=== PATIENT | male | born 1970 | race Caucasian/White ===

== ENCOUNTER 2024-12-17 15:54 | Outpatient (CLI) | payer BC, SELFPAY ==
--- NOTE | ~2024-12-17 | MR_ITS ---
MRI of the right knee Clinical history: Pain Technique: Coronal proton density and proton density-weighted images, sagittal proton-density and T2 fat-sat images, and axial proton-density fat-saturated images were acquired. Findings: Anterior and posterior cruciate ligaments are intact. Medial collateral ligament and the la teral collateral ligament complex are intact. Popliteus tendon is intact. No definite lateral meniscal tear seen. Suspected free edge fraying or subtle horizontal tear of the posterior horn of the medial meniscus. There is subchondral insufficiency fracture of the medial femoral condyle with extensive reactive mar row edema throughout the medial femoral condyle. Articular cartilage shows moderate to high-grade thi nning at the medial joint line. Extensor mechanism is intact. No significant joint effusion or Grace's cyst. Impression: Subchondral insufficiency fracture of the medial femoral condyle with extensive surrounding amorphous marrow edema. Suspected free edge fraying or subtle horizontal tear of the posterior horn of medial meniscus. Reviewed, dictated and finalized at [facility]. Impression: Subchondral insufficiency fracture of the medial femoral condyle with extensive surrounding amorphous marrow edema. Suspected free edge fraying or subtle horizontal tear of the posterior horn of medial meniscus.
== END 2024-12-17 15:55 | disposition home or self-care (01) ==
PROVIDERS: PCP Family Medicine; Visit Provider Family Medicine
DX: S72.431A Displaced fracture of medial condyle of right femur, initial encounter for closed fracture (principal); X58.XXXA Exposure to other specified factors, initial encounter
CPT/HCPCS: 73721